=== PATIENT | male | born 1950 | race Caucasian/White ===

== ENCOUNTER → 2024-04-19 13:34 | Outpatient (REF) | payer MEDICARE, OTHER, SELFPAY | LOC: RAD 13:34 | PROVIDERS: ATTENDING PHYSICIAN Family Medicine | DX: M25.552 Pain in left hip (principal) | CPT/HCPCS: 73502 ==

== ENCOUNTER → 2024-06-20 10:59 | Outpatient (REF) | payer MEDICARE, SELFPAY | LOC: PAVMRI 10:59 | PROVIDERS: ATTENDING PHYSICIAN Specialist; FAMILY PHYSICIAN Family Medicine | DX: M16.12 Unilateral primary osteoarthritis, left hip (principal) | CPT/HCPCS: 73721 ==

== ENCOUNTER 2024-08-01 06:27 | Day surgery (SDC) | payer MEDICARE, SELFPAY ==
[2024-07-08 13:07] VITALS: BMI 24.4
[2024-07-08 13:52] LABS: Hematocrit 39.8 % (39.0-52.0); Mean Corp Hgb Conc. 35.2 g/dL (33.0-37.0); Mean Corpuscular Hgb 33.6 pg (27.0-31.0); Mean Corpuscular Volume 95.4 fL (80.0-94.0); Mean Platelet Volume 9.8 fL (7.4-10.4); Platelet Count 228 10^3/uL (130-400); Red Blood Cell Count 4.17 10^6/uL (4.70-6.10); Red Cell Dist. Width 12.8 % (11.5-14.5); White Blood Cell Count 6.5 10^3/uL (4.8-10.8)
[2024-07-08 14:15] LABS: ALT (SGPT) 20 U/L (0-50); AST (SGOT) 24 U/L (17-59); Albumin 4.2 g/dl (3.5-5.0); Alkaline Phosphatase 102 U/L (38-126); Blood Urea Nitrogen 18 mg/dl (9-20); Calcium 9.7 mg/dl (8.4-10.2); Carbon Dioxide 30 mmol/L (22-30); Chloride 100 mmol/L (98-107); Estimated Creatinine Clearance 100 ml/min; Glucose 95 mg/dl (70-99); Sodium 138 mmol/L (135-145); Total Bilirubin 0.6 mg/dl (0.2-1.3); Total Protein 6.4 g/dl (6.3-8.2); eGFR > 60.00
[2024-07-08 14:18] LABS: Glycohemoglobin (HgbA1c) 5.5 % (4.0-5.6)
--- NOTE | 2024-07-19 09:18 | VNURNOTE ---
Patient is scheduled for an elective R STEPHEN on 08/01/[address] Christian- he is a same day patient. Spoke with patient prior to surgery. Introduced role of [facility] liaison.
Patient reports that he lives with his in a MULTI story home.
There is one step to enter.
He currently functions independently. He has a cane and rolling walker. He will obtain a raised toilet seat.
He has never had VN services.
PCP is Rip Dixon.
Pharm is [facility] [address]
Discussed orthopedic program and post surgical plans.
Reviewed that he will have VN services initially and will then start outpatient PT. [facility] is [facility] [place].
Patient selects [facility] for his home care needs and will go to outpt PT per above.
Patient is in agreement with plan and states that his will be home with him.
Referral placed in [facility].
[2024-07-27 12:51] VITALS: BMI 24.4
[2024-08-01] VITALS (14 sets, daily range): BP systolic 87–144; BP diastolic 43–75; PULSE 59; O2SAT 98; BMI 24.4
[2024-08-01] MEDS: TYLENOL 650 MG PO (09:44)
[2024-08-01] MEDS: CELEBREX 200 MG PO (09:44)
[2024-08-01] MEDS: NORMOSOL-R/PLASMALYTE-A 1000 IV (10:07)
--- NOTE | 2024-08-01 10:07 | PTCARENOTE ---
Patient is concerned about his in the waiting room. Patient told that we usually get the patient ready first, put the IV in and them bring in family. (Patient waited in the SDS unit for approximately 1/2 hour before nurse was assigned). Told
patient that I would call out to the waiting room to tell that we would bring her in as soon as he was ready and she decided to go to the car and eat something. is now in the unit sitting with patient at the bedside. Will monitor patient.
[2024-08-01] MEDS: TYLENOL 1000 MG PO (15:18)
[2024-08-01] MEDS: ANCEF 5 IV (15:22)
== END 2024-08-01 16:30 | disposition home or self-care (01) ==
LOC: SDS 06:27
PROVIDERS: ATTENDING PHYSICIAN Specialist; FAMILY PHYSICIAN Family Medicine; REFERRING PHYSICIAN Internal Medicine Cardiovascular Disease
PROC: 0SRB04A Replacement of Left Hip Joint with Ceramic on Polyethylene Synthetic Substitute, Uncemented, Open Approach (ICD-10-PCS; 2024-08-01)
DX: M16.12 Unilateral primary osteoarthritis, left hip (principal); J45.909 Unspecified asthma, uncomplicated
CPT/HCPCS: 27130; 36415; 73502; 80053; 83036; 85027; 87070; 97116; 97162; C1713; C1776

== ENCOUNTER → 2025-02-19 07:00 | Outpatient (REF) | payer MEDICARE, SELFPAY | LOC: MRI 3T 07:00 | PROVIDERS: ATTENDING PHYSICIAN Specialist; PRIMARYCARE PHYSICIAN Family Medicine | DX: M54.16 Radiculopathy, lumbar region (principal); M25.551 Pain in right hip | CPT/HCPCS: 72148; 73721 ==